=== PATIENT | female | born 1940 | race Caucasian/White ===

== ENCOUNTER 2018-12-26 07:34 | Outpatient (CLI) | payer MEDICARE, OTHER ==
[~2018-12-26 07:34] MED LIST: REGADENOSON 0.4 MG/5 ML SYRINGE ONE
== END 2018-12-26 23:59 | disposition home or self-care (01) ==
LOC: CFH 07:34
PROVIDERS: ATTEND Internal Medicine Cardiovascular Disease
DX: I34.0 Nonrheumatic mitral (valve) insufficiency (principal); R07.89 Other chest pain; I00 Rheumatic fever without heart involvement
CPT/HCPCS: 78452; 93017; 93306; A9502; J2785